=== PATIENT | female | born 1960 | race Caucasian/White ===

== ENCOUNTER → 2022-02-01 14:29 | Outpatient (BNVA) | payer BC, SELFPAY | PROVIDERS: Visit Provider Emergency Medicine | DX: I10 Essential (primary) hypertension (principal); J30.2 Other seasonal allergic rhinitis; F17.200 Nicotine dependence, unspecified, uncomplicated; J45.40 Moderate persistent asthma, uncomplicated | CPT/HCPCS: 80053; 80061; 83880; 84443 ==